=== PATIENT | male | born 1975 | race Caucasian/White ===

== ENCOUNTER 2016-11-30 07:07 | Emergency (ER) | payer BC ==
[2016-11-30 07:17] VITALS: BP 144/97; PULSE 74; RESP 16; TEMP 98.1; O2SAT 97
--- NOTE | 2016-11-30 07:44 | EDPHY ---
H & P Time Seen by Provider: 11/30/16 07:14 HPI/ROS: CHIEF COMPLAINT: Sore throat, fever, cough HISTORY OF PRESENT ILLNESS: Patient is a 41-year-old male presents emergency department with multiple complaints. His symptoms started last Tuesday. He developed sore throat. It is moderate and worsening. He describes a nonproductive cough. He has a fever at home to 102. This is intermittent. He states his skin feels hot. He has had no rash. He denies any foreign travel. No recent antibiotic use. No shortness of breath. No chest pain. No abdominal pain. No nausea or vomiting. REVIEW OF SYSTEMS: My complete review of systems is negative except as mentioned in the HPI. Past Medical/Surgical History: Negative Past surgical history: Negative Social history: The patient does not smoke Smoking Status: Never smoked Physical Exam: GENERAL: Well-appearing, in no acute distress, alert. HEENT: Eyes normal to inspection, no signs of dehydration. Pharynx has mild erythema. No lesions or ulcerations. No discharge. Uvula is midline. NECK: No thyromegaly, no lymphadenopathy, supple. RESPIRATORY: Clear to auscultation bilaterally, no rales, rhonchi or wheezing. CVS: Regular rate and rhythm, no rubs, murmurs, or gallops. ABDOMEN: Soft, nontender, nondistended, no organomegaly. BACK: Normal to inspection, no CVA tenderness. SKIN: Normal color, no rash, warm, dry. No pallor. EXTREMITIES: No pedal edema, no calf tenderness, no Homans sign or cords, no joint swelling. NEURO/PSYCH: Alert and oriented x3, normal mood and affect, normal motor sensory exam. No obvious cranial nerve deficit. Constitutional: Initial Vital Signs Temperature (C) 36.7 C 11/30/16 07:09 Heart Rate 74 11/30/16 07:09 Respiratory Rate 16 11/30/16 07:09 Blood Pressure 144/97 H 11/30/16 07:09 O2 Sat (%) 97 11/30/16 07:09 O2 Delivery Mode Room Air Allergies/Adverse Reactions: No Known Allergies Allergy (Verified 11/30/16 07:17) Home Medications: Medication Instructions Recorded Penicillin V Potassium [Penicillin 500 mg PO TID #20 tab 11/30/16 VK] Medical Decision Making ED Course/Re-evaluation: In the emergency department I discussed possible etiologies with the patient. I answered all of his questions. A strep screen was sent. Strep screen is negative. DNA is pending I discussed the results with the patient. I answered all his questions. Due the patient's ongoing symptoms, fever, and awaiting DNA findings the patient will be treated with antibiotics. He was given warnings prior to leaving. He will return with worsening symptoms. Differential Diagnosis: My differential includes but is not limited to pharyngitis, peritonsillar abscess, retropharyngeal abscess, viral illness, bronchitis, pneumonia - Data Points Laboratory Results: 11/30/16 11/30/16 Unknown 07:30 Group A Strep Screen NEGATIVE (NEGATIVE) Group A Strep DNA Pending Departure - Departure Disposition: Home, Routine, Self-Care Clinical Impression: Pharyngitis Qualifiers: Pharyngitis/tonsillitis etiology: unspecified etiology Qualified Code(s): J02.9 - Acute pharyngitis, unspecified Fever Qualifiers: Fever type: unspecified Qualified Code(s): R50.9 - Fever, unspecified Condition: Good Instructions: Pharyngitis (ED), Fever in Adults (ED) Referrals: Nory Sweeney MD [Medical Doctor] - As per Instructions Prescriptions: Penicillin V Potassium [Penicillin VK] 500 mg PO TID #20 tab
[2016-11-30] MEDS ORDERED: DEXAMETHASONE 4 MG TAB PO ONE (07:46)
== END 2016-11-30 07:50 | disposition home or self-care (01) ==
LOC: CED 07:07
DX: J02.9 Acute pharyngitis, unspecified (principal)
CPT/HCPCS: 87880-PO